=== PATIENT | female | born 1935 | race Caucasian/White ===

== ENCOUNTER → 2020-01-17 | Outpatient (CLI) | payer OTHER, MEDICARE | LOC: MRI 09:36 | DX: M19.072 Primary osteoarthritis, left ankle and foot (principal); M25.475 Effusion, left foot ==

== ENCOUNTER → 2020-07-13 | Outpatient (CLI) | payer OTHER, MEDICARE ==
[2020-07-13 15:00] LABS: ABSOLUTE NEUTROPHILS 4.1 thou/uL (1.4-8.2); BASOPHILS 0.8 % (0.0-2.0); EOSINOPHILS 2.2 % (0.0-3.0); HEMATOCRIT 36.6 % (37.0-47.0); HEMOGLOBIN 12.3 gm/dL (12.0-15.0); MCH 33.2 pg (26.0-34.0); MCHC 33.5 g/dL (28.0-37.0); MCV 99.1 fL (80.0-100.0); MONOCYTES 9.6 % (1.0-8.0); PLATELET COUNT 216 thou/uL (150-400); POLYS 63.4 % (36.0-66.0); RDW 13.6 % (10.5-14.5); WBC 6.5 thou/uL (4.0-11.0)
[2020-07-13 15:14] LABS: ALBUMIN 3.8 g/dL (3.4-5.0); CALCIUM 9.3 mg/dL (8.5-10.1); CREATININE 0.8 mg/dL (0.6-1.0); POTASSIUM 4.2 mmol/L (3.5-5.1); TOTAL BILIRUBIN 0.5 mg/dL (0.2-1.0); TOTAL PROTEIN 7.2 g/dL (6.4-8.2)
== END ==
LOC: CAT 14:18
PROVIDERS: ATTEND Nurse Practitioner
DX: K57.30 Diverticulosis of large intestine without perforation or abscess without bleeding (principal); N83.201 Unspecified ovarian cyst, right side; K59.00 Constipation, unspecified; N83.202 Unspecified ovarian cyst, left side; K76.89 Other specified diseases of liver; Z90.49 Acquired absence of other specified parts of digestive tract

== ENCOUNTER → 2021-02-09 | Outpatient (CLI) | payer OTHER, MEDICARE ==
[2021-02-09 12:18] LABS: CALCIUM 8.8 mg/dL (8.5-10.1); CREATININE 0.7 mg/dL (0.6-1.0)
== END ==
LOC: LAB 11:11
PROVIDERS: ATTEND Nurse Practitioner
DX: K76.89 Other specified diseases of liver (principal); N28.1 Cyst of kidney, acquired; M47.815 Spondylosis without myelopathy or radiculopathy, thoracolumbar region; M41.87 Other forms of scoliosis, lumbosacral region; M48.04 Spinal stenosis, thoracic region; Z90.49 Acquired absence of other specified parts of digestive tract